=== PATIENT | male | born 1960 | race Caucasian/White ===

== ENCOUNTER 2019-09-14 16:18 | Emergency (ER) | payer MEDICARE ==
--- NOTE | 2019-09-14 17:30 | UC ---
Throat Pain/Nasal Andrea HPI - HPI Summary HPI Summary: 59-year-old male comes in with a chief complaint of upper respiratory tract infection symptoms for 4-5 days. Is a runny nose cough chest congestion and green rhinorrhea. Patient does have a history of seizures. Steam has helped with some of the symptoms. - History of Current Complaint Chief Complaint: UCGeneralIllness Stated Complaint: COUGH,CONGESTION Time Seen by Provider: 09/14/19 16:50 Pain Intensity: 0 - Allergies/Home Medications Allergies/Adverse Reactions: Allergies Allergy/AdvReac Type Severity Reaction Status Date / Time Penicillins Allergy Seizure at Verified 09/14/19 16:54 age 5 y.o. Home Medications: Home Medications Lacosamide [Vimpat] 200 mg PO BID 09/14/19 [History Confirmed 09/14/19] Topiramate [Topiramate ER 100 mg cap] 100 mg PO BID 09/14/19 [History Confirmed 09/14/19] Topiramate [Topiramate ER 25 mg cap] 25 mg PO BID 09/14/19 [History Confirmed ] PMH/Surg Hx/FS Hx/Imm Hx Previously Healthy: Yes Neurological History: Seizures - Surgical History Surgical History: None - Social History Alcohol Use: None Substance Use Type: Marijuana Smoking Status (MU): Current Every Day Smoker Type: Cigarettes Amount Used/How Often: 1/2 ppd Length of Time of Smoking/Using Tobacco: 32 Have You Smoked in the Last Year: Yes Review of Systems All Other Systems Reviewed And Are Negative: Yes Constitutional: Positive: Other - see hpi Skin: Positive: Negative Eyes: Positive: Negative ENT: Positive: Nasal Discharge, Sinus Congestion Respiratory: Positive: Cough Cardiovascular: Positive: Negative Gastrointestinal: Positive: Negative Motor: Positive: Negative Neurovascular: Positive: Negative Musculoskeletal: Positive: Negative Neurological: Positive: Negative Psychological: Positive: Negative Is Patient Immunocompromised?: No Physical Exam Triage Information Reviewed: Yes Appearance: No Pain Distress, Well-Nourished, Ill-Appearing - mild Vital Signs: Initial Vital Signs Temp 98.9 F 09/14/19 16:56 Pulse 70 09/14/19 16:56 Resp 16 09/14/19 16:56 BP 97/63 09/14/19 16:56 Pulse Ox 99 09/14/19 16:56 Vital Signs Reviewed: Yes Eye Exam: Normal Eyes: Positive: Conjunctiva Clear ENT: Positive: Pharyngeal erythema, Nasal congestion, Nasal drainage, TM bulging - left, TM red - left Neck: Positive: Supple, Nontender Respiratory: Positive: Lungs clear, Normal breath sounds, No respiratory distress Cardiovascular: Positive: RRR Musculoskeletal: Positive: Strength Intact, ROM Intact Neurological: Positive: Alert, Muscle Tone Normal Psychological: Positive: Normal Response To Family Skin Exam: Normal Throat Pain/Nasal Course/Dx - Course Course Of Treatment: On examination patient has a left otitis media. He is allergic to penicillins. Is mother is here and she reports that in the past he's taken some medications which have given him seizures. She reports that he's had Keflex before and take it successfully without getting any seizures and she wishes to have Keflex. I discussed that Omnicef also being cephalosporin should be well tolerated and has an indication for otitis media however the patient's mother would not agree to have him have anything other than Keflex. Follow-up his primary care doctor get reevaluated sooner if worse or any questions or concerns. - Differential Dx/Diagnosis Provider Diagnosis: Otitis media, left Discharge ED - Sign-Out/Discharge Documenting (check all that apply): Patient Departure All imaging exams completed and their final reports reviewed: No Studies - Discharge Plan Condition: Stable Disposition: HOME Prescriptions: Cephalexin CAP* [Keflex CAP*] 500 mg PO TID #30 cap Patient Education Materials: Ear Infection (ED) Referrals: [facility] [Outside] Additional Instructions: FOLLOW UP WITH YOUR DOCTOR IF NOT COMPLETELY IMPROVED. GET REEVALUATED IF NOT IMPROVING OR WORSE OR ANY QUESTIONS OR CONCERNS. - Billing Disposition and Condition Condition: STABLE Disposition: Home
[2019-09-14 17:59] VITALS: BP 97/63
== END 2019-09-14 17:47 | disposition home or self-care (01) ==
LOC: UCCORT 16:18
DX: H66.92 Otitis media, unspecified, left ear (principal); R09.89 Other specified symptoms and signs involving the circulatory and respiratory systems; R05 Cough; Z88.0 Allergy status to penicillin; R56.9 Unspecified convulsions; F17.210 Nicotine dependence, cigarettes, uncomplicated
CPT/HCPCS: 99201; G0463